=== PATIENT | male | born 1960 | race Caucasian/White ===

== ENCOUNTER → 2016-09-28 | Outpatient (CLI) | payer MEDICARE, OTHER ==
--- NOTE | 2016-09-28 08:31 | US ---
EXAMINATION TYPE: US abdomen complete DATE OF EXAM: 09/28/2016 COMPARISON: NONE CLINICAL HISTORY: I71.4 aneurysm. pt states he had stress test elsewhere that showed aorta aneurysm, pt not npo EXAM MEASUREMENTS: Liver Length: 17.1 cm Gallbladder Wall: 0.2 cm CBD: 0.5 cm Spleen: 10.9 cm Right Kidney: 9.9 x 5.7 x 5.9 cm Left Kidney: 10.3 x 6.8 x 5.1 cm Pancreas: Obscured by bowel gas Liver: upper limits in size, heterogeneous, attenuating Gallbladder: wnl Evidence for sonographic Cobb's sign: no CBD: wnl Spleen: wnl Right Kidney: wnl Left Kidney: wnl Upper IVC: Obscured by overlying bowel gas Abd Aorta: some limitations; prox 2.0 x 2.2cm, mid 1.7 x 1.6cm, dst 1.7 x 1.5cm, bif wnl, no AAA see n Some exam limitations due to overlying bowel gas. IMPRESSION: 1. Although the examination is slightly limited there is no evidence of abdominal aortic aneurysm. 2. Mild hepatic steatosis.
== END | disposition home or self-care (01) ==
LOC: RADUSWWP 07:50
DX: K76.0 Fatty (change of) liver, not elsewhere classified (principal); I71.4 Abdominal aortic aneurysm, without rupture
CPT/HCPCS: 76700

== ENCOUNTER 2020-11-05 10:34 | Day surgery (SDC) | payer MEDICARE, OTHER ==
[2020-11-04 09:01] VITALS: BMI 31.1
[~2020-11-05 10:34] MED LIST: LACTATED RINGERS 1,000 ML IV SCH
[2020-11-05 11:19] VITALS: RESP 16; TEMP 96.6
[2020-11-05] MEDS ORDERED: PROPOFOL 10 MG/ML 20 ML VIAL IV ONE (11:54)
--- NOTE | 2020-11-05 12:14 | P.PCN ---
Date of Procedure: 11/05/20 Procedure(s) Performed: BRIEF HISTORY: Patient is a 60-year-old pleasant white male scheduled for an elective colonoscopy as a part of screening for colorectal neoplasia. His been complaint of rectal pain on and off for the last few months duration. PROCEDURE PERFORMED: Colonoscopy. PREOPERATIVE DIAGNOSIS: Screening for colon cancer. IV sedation per Anesthesia. PROCEDURE: After informed consent was obtained, the patient, was brought into the endoscopy unit. IV sedation was administered by Anesthesia under continuous monitoring. Digital rectal examination was normal. No evidence of anal fissure noted. Small external skin tag identified. Initially the Olympus CF-160 flexible video colonoscope was then inserted in the rectum, gradually advanced into the cecum without any difficulty. Careful examination was performed as the scope was gradually being withdrawn. Ileocecal valve and the appendiceal orifice were visualized and appeared normal. Prep was excellent. Mucosa of the cecum appeared normal. In the ascending colon there were 2 polyps measuring 5 mm in size removed by snare polypectomy. The transverse colon there was a 7 mm sessile polyp removed by snare polypectomy. In the descending colon was a 1 cm polyp removed by snare polypectomy. Rest of the ascending colon, transverse colon, descending colon, sigmoid colon, and rectum appeared normal. Retroflexion was performed in the rectum and small internal hemorrhoids were seen. The patient tolerated the procedure well. IMPRESSION: 5 mm 2 ascending colon polyp status post polypectomy 7 mm transverse colon polyp status post polypectomy 1 cm descending colon polyp status post polypectomy Small internal hemorrhoids No anal fissures seen RECOMMENDATIONS: Findings of this examination were discussed with the patient as well as his family. He was advised to follow with the biopsy results. The biopsy reveals adenoma he can have a repeat colonoscopy in 3 years.
[2020-11-05 12:43] VITALS: BP 154/95; PULSE 66
== END 2020-11-05 13:08 | disposition home or self-care (01) ==
LOC: ORWHC2ENDO 10:34
PROVIDERS: ATTEND Internal Medicine Gastroenterology
DX: Z12.11 Encounter for screening for malignant neoplasm of colon (principal); D12.2 Benign neoplasm of ascending colon; D12.3 Benign neoplasm of transverse colon; D12.4 Benign neoplasm of descending colon; K64.8 Other hemorrhoids; E78.5 Hyperlipidemia, unspecified; F12.90 Cannabis use, unspecified, uncomplicated
CPT/HCPCS: 45385; 88305; J2704

== ENCOUNTER 2024-02-12 10:05 | Day surgery (SDC) | payer MEDICARE, OTHER ==
[2024-02-12 10:47] VITALS: TEMP 97.4
[2024-02-12] MEDS: LIDOCAINE 1% (10MG/ML) FOR IV START INTRADERMA PRN (10:50)
[2024-02-12] MEDS: IV FLUID CONTINUATION 1,000 ML IV ONE (10:50)
[2024-02-12] MEDS: LACTATED RINGERS 1,000 ML IV SCH (10:50)
[2024-02-12] MEDS ORDERED: PROPOFOL 10 MG/ML 20 ML VIAL IV ONE (11:14)
[2024-02-12] MEDS ORDERED: LIDOCAINE 1% INJ 10MG/ML (20 ML MDV) ONE (11:14)
--- NOTE | 2024-02-12 11:16 | P.GSHP ---
History of Present Illness H&P Date: 02/12/24 Chief Complaint: History of colon polyps 64-year-old male here for colonoscopy. Last colonoscopy 3 years ago. Patient had numerous colon polyps at that time. No bowel complaints. No family history of colon cancer. Past Medical History Past Medical History: Hyperlipidemia, Pneumonia Additional Past Medical History / Comment(s): gets occ rectal bleeding and rectal pain, History of Any Multi-Drug Resistant Organisms: None Reported Past Surgical History: Orthopedic Surgery, Tonsillectomy Additional Past Surgical History / Comment(s): hemorrhoidectomy, melonie foot surgery for repair of achillies tendon, Past Anesthesia/Blood Transfusion Reactions: No Reported Reaction Smoking Status: Never smoker - Past Family History Mother Family Medical History: No Reported History Medications and Allergies Home Medications Medication Instructions Recorded Confirmed Type Rosuvastatin [Crestor] 20 mg PO DAILY 11/04/20 02/12/24 History Soma(Dose Unknown) 1 tab PO DAILY PRN 11/04/20 02/12/24 History Allergies Allergy/AdvReac Type Severity Reaction Status Date / Time shellfish derived [Shellfish] Allergy Swelling, Verified 02/12/24 10:31 itching Surgical - Exam Vital Signs Temp Pulse Resp BP Pulse Ox 97.4 F L 72 16 137/77 96 02/12/24 10:38 02/12/24 10:38 02/12/24 10:38 02/12/24 10:38 02/12/24 10:38 Physical exam: General: Well-developed, well-nourished HEENT: Normocephalic, sclerae nonicteric Abdomen: Nontender, nondistended Extremities: No edema Neuro: Alert and oriented Assessment and Plan (1) History of colon polyps Narrative/Plan: Will proceed with colonoscopy at this time. Current Visit: Yes Status: Acute Code(s): Z86.0100 - PERSONAL HISTORY OF COLON POLYPS, UNSPECIFIED SNOMED Code(s): 644394980
--- NOTE | 2024-02-12 11:35 | P.PCN ---
Date of Procedure: 02/12/24 Procedure(s) Performed: PREOPERATIVE DIAGNOSIS: History of colon polyps POSTOPERATIVE DIAGNOSIS: Transverse colon polyp, sigmoid colon polyp x 2, diverticulosis PROCEDURE: Colonoscopy with snare polypectomy ANESTHESIA: MAC SURGEON: Henri Hernández M.D. SPECIMENS: Polyps ENDOSCOPIC PROCEDURE: The patient was placed on the endoscopy table in the left decubitus position. The Olympus colonoscope was inserted into the anus and passed under direct visualization to the base of the cecum. The appendiceal jennifer fice was visualized. From that point the scope was slowly withdrawn inspecting all surfaces carefully. There were no neoplastic inflammatory or polypoid lesions throughout the cecum and ascending colon. In the transverse colon a small polyp was seen and removed using the snare with cautery technique. Descending colon appeared normal. In the sigmoid colon 2 additional polyps were noted and removed using a similar technique. The remainder of the sigmoid and rectum was normal. The patient has scattered diverticulosis. Digital rectal examination was normal. The patient was taken to the recovery room in stable condition per anesthesia guidelines. RECOMMENDATIONS: Await biopsy results. Repeat colonoscopy 5 years.
[2024-02-12 11:45] VITALS: RESP 18
[2024-02-12 12:05] VITALS: BP 133/78; PULSE 74
== END 2024-02-12 12:45 | disposition home or self-care (01) ==
LOC: ORWHC2ENDO 10:05
PROVIDERS: ATTEND Surgery
DX: D12.3 Benign neoplasm of transverse colon (principal); D12.5 Benign neoplasm of sigmoid colon; K57.30 Diverticulosis of large intestine without perforation or abscess without bleeding; E78.5 Hyperlipidemia, unspecified; Z90.89 Acquired absence of other organs; Z91.013 Allergy to seafood; Z79.899 Other long term (current) drug therapy
CPT/HCPCS: 88305; 45385; J2003; J2704